=== PATIENT | male | born 1955 | race Native Hawaiian/Other Pacific Islander ===

== ENCOUNTER 2020-08-27 14:07 | Observation (INO) | payer OTHER ==
[~2020-08-27] VITALS: Ht 170.2 cm; Wt 65.0 kg
[2020-08-27 14:10] VITALS: BP 95/61; TEMP 97.4
[2020-08-27 14:25] VITALS: BP 142/85
[2020-08-27 14:30] VITALS: BP 143/79
[2020-08-27 14:35] VITALS: BP 131/69
[2020-08-27 14:37] LABS: PLATELET COUNT 202 K/uL (142-355)
[2020-08-27 14:54] LABS: SODIUM 135 mmol/L (136-145)
[2020-08-27 15:20] LABS: PARTIAL THROMBOPLASTIN TIME 21.4 SECONDS (24.5-33.6)
--- NOTE | 2020-08-27 17:20 | NUR ---
REC'D PT FROM ER VIA STRECTHER. PT ALERT AND ORIENTED. PT HAS LEFT SIDED WEAKNESS BUT THAT IS HIS NORMAL PER THE PT. PT STATED HE AHD STROKE X 2 IN THE PAST. PT SPEECH CLEAR AT TIME OF ARRIVAL TO MS. KEEN CATH INTACT ON ARRIVAL TO MED-SURG. PT CAME FROM HOME WITH KEEN CATH PER ER REPORT AND PT VERIFIED THAT. SMALL AMT OF YELLOW URINE NOTED INTO KEEN BAG. WILL INFORM MD OF PT'S ARRIVAL TO MS.
[2020-08-27 17:47] VITALS: BP 106/60; TEMP 97.4; Ht 170.2 cm; Wt 65.0 kg
--- NOTE | 2020-08-27 18:29 | NUR ---
CALLED [facility] TO OBTAIN INFORM AND UPDATED MED LIST. PT STATED THAT HE USED [facility] IN [place] AND MED LIST OBTAINED FROM THEM AND PT HAS HAD NO MEDS FILLED WITH THEM SINCE FEB 2020. SPEAKING TO [facility] WITH [facility] AND OBTAINING MED LIST.
[2020-08-27] MEDS ORDERED: DONE5TAB PO (18:41)
[2020-08-27] MEDS ORDERED: BACLOFEN10 MG PO (18:42)
[2020-08-27] MEDS ORDERED: HYDR5TAB9 PO (18:46)
[2020-08-27] MEDS ORDERED: LORA1TAB17 PO (18:49)
[2020-08-27] MEDS ORDERED: METO25TA4 PO (18:50)
[2020-08-27] MEDS ORDERED: SEROQUEL50 MG PO (18:50)
[2020-08-27] MEDS ORDERED: SERT100T PO (18:51)
[2020-08-27] MEDS ORDERED: TEMA15CA19 PO (18:51)
[2020-08-27] MEDS ORDERED: PROTONIX20 MG PO (18:52)
[2020-08-27] MEDS ORDERED: MEMA5TAB PO (18:53)
[2020-08-27] MEDS ORDERED: LIPITOR40 MG PO (18:54)
[2020-08-27] MEDS ORDERED: BENZ1TAB43 PO (18:55)
[2020-08-27 20:00] VITALS: BP 131/87; TEMP 98.2
--- NOTE | 2020-08-27 20:30 | NUR ---
PT ALERT AND ORIENTED WITH NO ACUTE DISTRESS NOTEDD, RESP RATE NONLABORED, KEEN PATENT DRAINING TO BEDSIDE, 22G IV INTACT TO R FA WITH NS AT 150ML/HR, 18G IV LOCK INTACT TO R AC, TALKATIVE WITH MEN'S LOCKER ROOM ATTENDANT AND DENIES ANY PROBLEMS. BROUGHT PT SPRITE PER REQUEST, PT TOLERATES DRINK WITH NO S/S OF ASPIRATION OR PROBLEMS, WILL MONITOR, RAILS UP, BED INLOW POSITION, CALL LIGHT IN REACH.
--- NOTE | 2020-08-27 23:55 | NUR ---
NEW ORDER FROM DR. GARCIA FOR BENADRYL 25MG PO Q HS PRN PT STATES HE TAKES IT NIGHTLY AT HOME FOR ITCHING. T.O. R&V.
[2020-08-28] VITALS (7 sets, daily range): BP systolic 115–143; BP diastolic 66–89; TEMP 97.6–98.7
--- NOTE | 2020-08-28 03:54 | NUR ---
PT GIVEN GI COCKTAIL 30ML PO Q 8 HOURS PRN PER NEW ORDER FROM DR. GARCIA FOR C/O ACID/INDIGESTION.
--- NOTE | 2020-08-28 05:00 | NUR ---
PT AWAKE AND TALKATIVE WITH BRICKLAYER APPRENTICE, DENIES ANY PROBLEMS EXCEPT FOR BEING HUNGRY AT THIS TIME(PT ON CLEAR LIQUID DIET), RESP RATE NONLABORED, KEEN PATENT DRAINING TO BEDSIDE, BOTH IV SITES INTACT TO R ARM, WILL MONITOR CLOSELY, RAILS UP, BED IN LOW POSITION, CALL LIGHT IN REACH.
[2020-08-28 09:00] LABS: PLATELET COUNT 154 K/uL (142-355)
[2020-08-28 09:27] LABS: POTASSIUM 3.1 mmol/L (3.6-5.2)
--- NOTE | 2020-08-28 10:02 | NUR ---
SPOKE TO MD REGARDING PT STATUS REVIEWED LABS AND MEDICATIONS. NEW ORDERS GIVEN BASED ON UA DIFLUCAN 150MG PO DAILY X 7 DAYS.
--- NOTE | 2020-08-28 11:24 | NUR ---
PTS POTASSIUM LEVEL 3.0, NOTIFIED PHYSICIAN OF PTS LOW KCL LEVEL AND PT HAS A ONE TIME ORDER FOR KCL 60 MEQ PO. NAD NOTED.
--- NOTE | 2020-08-28 12:00 | NUR ---
PT'S BLOOD AGVUVGD=[id number], NO COVERAGE GIVEN DUE TO PT WAS ON CLEAR LIQUID DIET. WILL CONSULT WITH PHYSICIAN TO ADVANCE PT'S DIET TO 1800 ADA DIET. PT HAS DIFFICULTY SWALLOWING LIQUIDS SINCE ADMISSION. PT STATED "I'M STARVING"
--- NOTE | 2020-08-28 12:19 | NUR ---
KEEN CATHETER CHANGED ON PT. PT NOW HAS A [address] IN [address]. NO DIFFICULTY INSERTING KEEN. PT TOLERATED WELL. ADMINISTERED STAT DOSE OF KCL ORDERED, PILLS CUT IN HALF AND PT SWALLOWED ONE HALF AT A TIME WITH NO DIFFICULTY SWALLOWING MEDS.
--- NOTE | 2020-08-28 16:17 | NUR ---
PT HAS A SMALL 1/4 INCH WOUND TO RIGHT SIDE OF BUTTOCKS. BARRIER CREAM APPLIED. WOUND OPEN WITH NO DRAINAGE NOTED.
--- NOTE | 2020-08-28 17:50 | NUR ---
PATIENT'S ADVISED [employer]PORATE SALES REPRESENTATIVE PATIENT INFORMED HER "HE WAS FORCED TO SIGN PAPERS" AND "THEY ARE THROWING HIM IN THE DETENTION". I REASSURED MRS. CELESTIN PATIENT HAS NOT SIGNED ANY PAPERS OF ANY TYPE AND NO ONE WAS THROWING HIM INTO A DETENTION. MRS. CELESTIN V/O UNDERSTANDING. NOTIFIED DR. GOODMAN OF SAME.
--- NOTE | 2020-08-28 20:40 | NUR ---
PT. SITTING UP IN A HIGH FOWLERS POSITION WITH SIDE RAILS UP TIMES THREE. PT. REACTIVE TO VERBAL STIMULI WITH NAD NOTED AT THIS TIME. PM MEDS GIVEN AT THIS TIME. PT. TOLERATED WELL.
--- NOTE | 2020-08-28 23:50 | NUR ---
PT. COMPLAINING OF HEADACHE AT THIS TIME. PT. GIVEN PRN TYLENOL AT THIS TIME.
[2020-08-29 04:25] VITALS: BP 130/91; TEMP 98.6
[2020-08-29 05:54] LABS: PLATELET COUNT 176 K/uL (142-355)
[2020-08-29 05:58] LABS: POTASSIUM 4.1 mmol/L (3.6-5.2)
[2020-08-29 08:00] VITALS: BP 156/100; TEMP 97.9
--- NOTE | 2020-08-29 10:29 | NUR ---
THIS PATIENT HAD BEEN UNDER THE CARE OF [facility]. MRS. CELESTIN SIGNED PAPERS TO [facility] AT THIS TIME. SHE IS CHECKING INTO OTHER OPTIONS FOR WHEN HE IS DISCHARGED. [facility] IS LOOKING INTO [facility].
[2020-08-29 12:00] VITALS: BP 126/83; TEMP 98.2
--- NOTE | 2020-08-29 12:09 | NUR ---
PT IN BED IN LOW FOWLERS POSITION. AWAKE AND ALERT. NAD NOTED. NO C/O PAIN OR DISCOMFORT. PT TALKS ON THE PHONE TO HIS THROUGHOUT THE DAY.
--- NOTE | 2020-08-29 15:19 | NUR ---
PT IN BED IN LOW FOWLERS POSITION WITH TEARS IN EYES, STATED THAT "I WANT TO SEE MY BECAUSE THIS MIGHT BE MY LAST TIME SEEING HER." PT APPEARS SAD AND ANXIOUS ABOUT HIS VISITING TODAY.
--- NOTE | 2020-08-29 15:28 | NUR ---
PT IS UNSTEADY WHEN STANDING NEEDS MAX ASSIST X2 WITH TRANSFERS FROM BED TO CHAIR.
[2020-08-29 16:00] VITALS: BP 142/84; TEMP 98.4
--- NOTE | 2020-08-29 18:06 | NUR ---
AT BEDSIDE. PT ALERT AND AWAKE. NAD NOTED. NO C/O PAIN OR DISCOMFORT. IV SITES TO RIGHT AC AND RIGHT FA INTACT WITH NO SWELLING AND REDNESS NOTED. PT HAD STATED THTAT THERE WAS BLOOD COMING FROM HIS IV SITE AND WAS ALL OVER HIS BED. WHEN ASSESSED PT NO BLOOD NOTED AT THE EITHER IV SITE OR ON PTS BED.
[2020-08-29 19:58] VITALS: BP 128/65; TEMP 97.5
--- NOTE | 2020-08-29 20:50 | NUR ---
PM MEDS GIVEN AT THIS TIME ALONG WITH PRN NORCO GIVEN FOR HEADACHE. PT TOLERATED WELL. PT IN A HIGH-FOWLERS POSITION IN THE LOWEST POSITION WITH CALL LIGHT WITHIN REACH. WILL CONTINUE TO MONITOR. PT'S BREATHING EVEN AND NON-LABORED AT THIS TIME AND RESPONSIVE TO VERBAL STIMULI.
[2020-08-30 00:05] VITALS: BP 123/98; TEMP 97.4
--- NOTE | 2020-08-30 01:25 | NUR ---
PT RESTING QUIETLY AT THIS TIME. PT SATTING AT THIS TIME 96% AND RESPIRATIONS 19. PT'S BREATHING EVEN AND NON-LABORED. NO NAD NOTED.
[2020-08-30 03:32] VITALS: BP 92/60; TEMP 98
[2020-08-30 06:52] LABS: POTASSIUM 3.7 mmol/L (3.6-5.2)
[2020-08-30 07:09] LABS: PLATELET COUNT 172 K/uL (142-355)
[2020-08-30 08:00] VITALS: BP 121/77; TEMP 98.1
--- NOTE | 2020-08-30 10:35 | NUR ---
DR. KING ORDERS TO BEGIN BLADDER TRAINING AT THIS TIME, KEEN CLAMPED, NO FURTHER ORDERS GIVEN
[2020-08-30 12:00] VITALS: BP 107/70; TEMP 98.1
--- NOTE | 2020-08-30 12:30 | NUR ---
KEEN UNCLAMPED AT THIS TIME APPROX 200ML URINE EMPTIED TO KEEN BAG, PT STATES HE DID FEEL THE URGE TO URINATE
--- NOTE | 2020-08-30 14:00 | NUR ---
KEEN CLAMPED AT THIS TIME
--- NOTE | 2020-08-30 15:41 | NUR ---
KEEN UNCLAMPED AT THIS TIME, PT STATES HE HAS NOT HAD THE URGE TO URINATE, CLEAR YELLOW URINE NOTED TO BE DRAINING INTO KEEN BAG, WILL CONTINUE TO MONITOR
[2020-08-30 16:00] VITALS: BP 119/71; TEMP 98
--- NOTE | 2020-08-30 16:41 | NUR ---
KEEN CLAMPED AT THIS TIME, INSTRUCTED PT TO CALL IF HE HAS THE URGE TO URINATE, PT VERBALIZED UNDERSTANDING
[2020-08-30 20:00] VITALS: BP 119/76; TEMP 98.3
[2020-08-31] VITALS: BP 145/64; TEMP 98.1
--- NOTE | 2020-08-31 00:01 | NUR ---
Pt called down to the nurses desk and ask for nurse to come to room because he thought that someone was knocking on his room window. This nurse and charge nurse Marsha Nolan, goes to room and pull blinds up and look outside, but do not see anyone outside. Pt was reassured that no one was outside, but told to call for assistance, if he had any concerns. He stated, understanding. No acute distress noted and call light is within reach.
--- NOTE | 2020-08-31 03:47 | NUR ---
New Swing Bed patient and is 5'7" at 147.12 lbs. and is a 65YOM that looks older than his age per MD. Transicient cerebral ischemic attach. acute OR, TIA verses CVA, CP R/O, and has a history of Colon Cancer, Dementia, Hypokalemia, HTN, GERD, Hemiparesis and is receiving zoloft, lipitor, ativan, Protonix, lopressor, etc... and RD reviewed all medicaitons and Hgb and Hct depressed and glucose elevated at 160 and is eating 75% of meals and is 5'7" at 147.12 lbs. and BMI at 23 and is wnl's and IBW = 14+/-10% (133 to 163 lbs.) and kcal needs for IBW x 25 = 1700, x 30 = 2000, x 35 = 1400 and x 40 = 2700 kcal/day, protein needs x .8 to 1.5 = 54 to 101 grams per day and fluids x 25 to 30 = 1700 to 2000 ml/cc per day. RD Recommendaitons: 1-Monitor labs 2-PT to work with the patient 3-OT to work with the patient 4-ST to work with the patient 4-Suggest Diabetic 2000 calorie High Fiber Cardiac and 5-May want to limit fluids and make sure hydrated 6-RD to visit with patient today 7-Add a MVI 8-Offer a supplement if eaitng <75% of meals
[2020-08-31 04:00] VITALS: BP 169/73; TEMP 98.1
== END 2020-09-02 15:10 | disposition home health service (06) ==
LOC: ED 14:07 → MED/SURG 16:30
PROVIDERS: Hospitalist; ADMIT Internal Medicine; ATTEND Internal Medicine
DX: G45.8 Other transient cerebral ischemic attacks and related syndromes (principal); E78.49 Other hyperlipidemia; F41.8 Other specified anxiety disorders; I69.354 Hemiplegia and hemiparesis following cerebral infarction affecting left non-dominant side; I69.819 Unspecified symptoms and signs involving cognitive functions following other cerebrovascular disease; F01.50 Vascular dementia, unspecified severity, without behavioral disturbance, psychotic disturbance, mood disturbance, and anxiety; R13.12 Dysphagia, oropharyngeal phase; E87.6 Hypokalemia; K21.9 Gastro-esophageal reflux disease without esophagitis; I10 Essential (primary) hypertension
CPT/HCPCS: 36415; 51702; 80048; 80053; 81000; 82550; 82948; 83874; 83880; 84484; 85027; 85610; 85730; 87635; 93005; 96360; 96372; 96374; 96375; 99220; 99284; A9576; G0378; J1650; J1815; J1956; J2270; J3490; U0003